=== PATIENT | female | born 1980 | race Asian ===

== ENCOUNTER 2023-12-20 18:41 | Emergency (ER) | payer OTHER, SELFPAY ==
[2023-12-20 18:43] VITALS: BP 120/78
[2023-12-20 18:55] LABS: % Eosinophils 0.3 % (0-6); % Immature Granulocytes 0.3 % (0-0.5); % Lymphocytes 33.9 % (20.5-51.1); % Monocytes 6.7 % (1.7-9.3); % Neutrophils 57.8 % (42.2-75.2); Absolute Basophils 0.1 10^3/uL (0-0.2); Absolute Lymphocytes 2.1 10^3/uL (1.2-3.4); Absolute Monocytes 0.4 10^3/uL (0.1-0.6); Absolute Neutrophils 3.6 10^3/uL (1.4-6.5); Hematocrit 27.6 % (37.0-47.0); Hemoglobin 8.2 g/dL (12.0-16.0); Mean Corp Hgb Conc. 29.7 g/dL (33.0-37.0); Mean Corpuscular Hgb 19.7 pg (27.0-31.0); Mean Corpuscular Volume 66.2 fL (81.0-99.0); Mean Platelet Volume 9.4 fL (7.4-10.4); Nucleated Red Blood Cells % 0 %; Platelet Count 512 10^3/uL (130-400); Red Blood Cell Count 4.17 10^6/uL (4.20-5.40); Red Cell Dist. Width 17.8 % (11.5-14.5); White Blood Cell Count 6.3 10^3/uL (4.8-10.8)
[2023-12-20 19:09] LABS: HCG, Serum Qualitative Screen Negative
[2023-12-20 19:14] LABS: ALT (SGPT) 18 U/L (0-35); AST (SGOT) 26 U/L (14-36); Alkaline Phosphatase 72 U/L (38-126); Blood Urea Nitrogen 12 mg/dl (7-17); Calcium 9.7 mg/dl (8.4-10.2); Carbon Dioxide 25 mmol/L (22-30); Chloride 101 mmol/L (98-107); Glucose 103 mg/dl (70-99); Potassium 3.8 mmol/L (3.5-5.1); Sodium 136 mmol/L (135-145); Total Bilirubin 0.6 mg/dl (0.2-1.3); Total Protein 7.9 g/dl (6.3-8.2); eGFR > 60.00
[2023-12-20 19:15] LABS: Lipase 101 U/L (23-300)
[2023-12-20 20:51] VITALS: BMI 21.2
[2023-12-20 20:53] VITALS: BP 121/65
[2023-12-20 20:55] VITALS: BP 118/79; BP 121/65; BP 128/71; PULSE 76; PULSE 80
[2023-12-20 20:56] VITALS: BP 118/79
[2023-12-20 21:00] VITALS: BP 128/68
[2023-12-20 22:00] VITALS: BP 101/55
--- NOTE | 2023-12-20 22:07 | ED.GENMED ---
History of Present Illness
General
Chief Complaint: Abdominal Symptoms
Source: patient and spouse
Time Seen by Provider: 12/20/23 20:29
Travel History
Have you had any contact with someone who has COVID-19?: No
Do you have any symptoms of coronavirus? Fever > 100 degrees, chills, cough, shortness of breath, sore throat, loss of taste or smell, muscle aches, or headache?: No
History of Present Illness
History of Present Illness:
43-year-old female who presents with dizziness. The patient states that the patient has had off-and-on dizzy spells for several weeks maybe months. Patient states that it seems like it is getting a little worse. It can occur in different
body positions or different times a day and there does not seem to be a steady pattern to when it occurs. The patient does state that does seem a little bit like a room spinning dizziness. Today she vomited and began to feel better. On my
evaluation she has no further symptoms. She denies lightheadedness with standing. She does get her period but it seems to be lessening. She denies heavy bleeding. She denies rectal bleeding. No abdominal pain. She has had occasional headaches.
No vision change. No motor weakness. No numbness or tingling. No gait disturbance. No tinnitus. No hearing deficit. She exercises regularly and denies any symptoms while exercising
Past History
Past History
ED Past Medical History: None
Phy Exam
Physical Exam
Physical Exam:
CONSTITUTIONAL Patient alert and oriented to person, place and time. Well-appearing. Vital signs reviewed.
HEAD atraumatic, normocephalic.
ENT TMs normal bilaterally.
EYES eyelids normal to inspection, Pupils equally round and reactive to light, Extraocular muscles intact, Conjunctiva normal, Sclera normal.
NECK normal range of motion, Trachea midline, no jugular venous distention.
RESPIRATORY CHEST No respiratory distress noted, Chest expansion equal, Bilateral breath sounds clear.
CARDIOVASCULAR regular rate and rhythm, Heart sounds normal.
ABDOMEN abdomen nontender, Bowel sounds normal. No distention.
BACK normal inspection, no obvious deformities
UPPER EXTREMITY range of motion normal, Motor strength normal, no cyanosis, no edema.
LOWER EXTREMITY range of motion normal, Motor strength normal, no cyanosis, no edema.
NEURO Speech normal, No focal motor deficits, [place] coma scale 15, Memory normal, Cranial Nerves intact to screening exam. Normal [id number]. Normal [id number]. No pronator drift
SKIN skin warm, dry, and normal in color.
PSYCHIATRIC patient oriented to person place and time, Normal affect.
Course
Orders/Labs/Results
Orders:
Orders
12/20/23 18:45
Test Result ONCE
12/20/23 18:48
Complete Blood Count/With Diff Urgent
Comprehensive Metabolic Panel Urgent
HCG, Serum Qualitative Screen Urgent
Lipase Urgent
12/20/23 20:55
CT Head W/o Iv Contrast Stat
Comment:
Reason For Exam: RAMAN, dizzy
12/20/23 22:24
Add On- LAB Stat
Tests Added?: Fe, TIBC
Abnormal Lab Results
12/20/23
18:48
RBC 4.17 L 10^6/uL
(4.20-5.40)
Hgb 8.2 L g/dL
(12.0-16.0)
Hct 27.6 L %
(37.0-47.0)
MCV 66.2 L fL
(81.0-99.0)
MCH 19.7 L pg
(27.0-31.0)
MCHC 29.7 L g/dL
(33.0-37.0)
RDW 17.8 H %
(11.5-14.5)
Plt Count 512 H 10^3/uL
(130-400)
Creatinine 0.5 L mg/dL
(0.6-1.0)
Glucose 103 H mg/dl
(70-99)
12/20/23 18:48
12/20/23 18:48
Vital Signs
Initial and Last Documented VS:
Initial Vital Signs
Temp Pulse Resp BP Pulse Ox
98.6 F 77 18 120/78 100
12/20/23 18:43 12/20/23 18:43 12/20/23 18:43 12/20/23 18:43 12/20/23 18:43
Last Documented Vital Signs
Temp Pulse Resp BP Pulse Ox
98.6 F 77 18 120/78 100
12/20/23 18:43 12/20/23 18:43 12/20/23 18:43 12/20/23 18:43 12/20/23 18:43
MDM/Problems Addressed
MDM/Problems Addressed:
Microcytic anemia, dizziness, possible vertigo
*Radiology
Radiology exam reviewed: preliminary read by ED provider (No obvious bleeding) and radiology read reviewed
*Pulse Oximetry
Patient hypoxic: no
*Critical Care Note
Total Time (30-74mins, 75-104mins- exclusive of procedures): Not Applicable
Data Reviewed
Prescriptions/Medications Considered But Not Given:
Considered meclizine but the patient is currently stable without symptoms.
Patient Management
Escalation/DeEscalation of care consider admission/obs:
Rectal exam no blood but empty rectal vault
43-year-old female presents with intermittent dizziness. Certainly sounds like the symptoms could be vertiginous. Exam is benign. CT noted. Will provide meclizine for as needed use. However, will recommend MRI of the brain in light of CT
results. In addition, recommended close PCP follow-up for further workup of her anemia. I suspect her anemia has been somewhat chronic and gradual as she is mostly asymptomatic. I do not fact her dizziness is related to symptomatic anemia as it
occurs sometimes while laying in bed at night and is not exertional. Will also recommend daily iron supplementation.
ED Attending Note
-
Portions of this chart may have been created with voice recognition software.� Occasional wrong word or��sound alike� substitutions may have occurred due to the inherent limitations of voice recognition software.
Discharge Plan
Departure
Patient Disposition: Home (Routine Discharge)
Date of Disposition: 12/20/23
Time of Disposition: 22:27
Patient with high blood pressure during this ER visit?: No
Discharge Problem:
Microcytic anemia, Dizziness
Instructions: Anemia Caused by Low Iron, Adult (DC), Vertigo ED
Prescriptions:
New
ferrous sulfate 324 mg (65 mg iron) tablet,delayed release (DR/EC)
324 mg PO DAILY Qty: 30 0RF
meclizine 25 mg tablet
25 mg PO TID PRN (Reason: dizziness) Qty: 15 0RF
Activity Restrictions/Additional Instructions:
Please take a daily iron supplement. In addition, please see your doctor in follow-up in the next 3 to 5 days for further workup on your anemia. Please have your stools tested for blood and consider colonoscopy if indicated.
In addition, based on your CT scan results, please be sure to see your doctor in follow-up and consider an MRI of your brain.
Use the dizziness medication (meclizine) as needed for dizziness.
Return immediately for intractable dizziness, intractable vomiting, weakness of any kind or any other concerns.
Interventions
Interventions:
*Risk Screen - Suicide Last Done: 12/20/23 18:43
*General Assessment Last Done: 12/20/23 18:43
*Neglect/Abuse Screening Last Done: 12/20/23 18:43
*ED COVID-19 Vaccine History Last Done: 12/20/23 18:43
UF-Qlgrql-Urmuiszycs Assessment Last Done: 12/20/23 20:54
[2023-12-20 23:02] LABS: Iron 25 ug/dl (37-170)
[2023-12-20 23:12] LABS: Percent Saturation 5 % (20-50); Total Iron Binding Capacity 480 ug/dl (265-497)
== END 2023-12-20 22:38 | disposition home or self-care (01) ==
LOC: EMR 18:41
PROVIDERS: Emergency Medicine; EMERGENCY PHYSICIAN Emergency Medicine; FAMILY PHYSICIAN Internal Medicine
DX: D50.9 Iron deficiency anemia, unspecified (principal); R42 Dizziness and giddiness
CPT/HCPCS: 99284; 70450; 80053; 83540; 83550; 83690; 84703; 85025